=== PATIENT | male | born 1990 | race Caucasian/White ===

== ENCOUNTER 2018-08-11 10:32 | Emergency (ER) | payer OTHER ==
[~2018-08-11] VITALS: Ht 175.3 cm; Wt 74.8 kg
[2018-08-11 11:34] VITALS: Ht 175.3 cm; Wt 74.8 kg
[2018-08-11 14:33] LABS: BASOPHIL % 1.1 % (0-2); PLATELET COUNT 195 x10^3mcL (130-400); RED CELL DISTRIBUTION WIDTH 12.3 % (11.5-14.5)
[2018-08-11 15:33] LABS: microscopic required? NO
[2018-08-11 15:45] LABS: CALCIUM 8.5 mg/dL (8.5-10.1); CARBON DIOXIDE 27.4 mmol/L (21-32); CHLORIDE SERUM 102 mmol/L (98-107); GFR1 > 60 mL/min; GLUCOSE SERUM 135 mg/dL (74-106); POTASSIUM SERUM 3.8 mmol/L (3.5-5.1); SODIUM SERUM 140 mmol/L (136-145)
[2018-08-11 15:45] LABS: urine erythrocyte NEGATIVE (NEGATIVE)
[2018-08-11 15:50] LABS: ALBUMIN 4.1 g/dL (3.4-5.0); ALKALINE PHOSPHATASE 68 U/L (46-116); ALT/SGPT 27 U/L (16-63); AMYLASE 60 U/L (25-115); AST/SGOT 26 U/L (15-37); BILIRUBIN TOTAL 1.2 mg/dL (0.20-1.00); CHOLESTEROL 149 mg/dL (<200); LIPASE 75 IU/L (73-393); MAGNESIUM 1.6 mg/dL (1.8-2.4); T4(THYROXINE) 8.5 ug/dL (4.7-13.3); TOTAL PROTEIN, SERUM 6.8 g/dL (6.4-8.2)
[2018-08-11 15:53] LABS: HDL CHOLESTEROL 65 mg/dL (40-60)
[2018-08-11 16:03] LABS: AMPHETAMINE QUAL UR NONE DETECTED (See below)
[2018-08-11 17:38] VITALS: BP 121/67
== END 2018-08-11 17:38 | disposition home or self-care (01) ==
LOC: ED 10:32
PROVIDERS: Emergency Medicine
DX: R55 Syncope and collapse (principal); S39.011A Strain of muscle, fascia and tendon of abdomen, initial encounter; I45.10 Unspecified right bundle-branch block; Z88.0 Allergy status to penicillin; X50.0XXA Overexertion from strenuous movement or load, initial encounter; Y93.89 Activity, other specified; Y92.89 Other specified places as the place of occurrence of the external cause; Y99.8 Other external cause status
CPT/HCPCS: 82962; 83880; J1885; J7030; Q0092